=== PATIENT | female | born 1985 | race African-American/Black ===

== ENCOUNTER 2019-11-08 18:23 | Emergency (ER) | payer OTHER ==
[~2019-11-08] VITALS: Ht 170.2 cm; Wt 81.6 kg
[~2019-11-08 18:23] MED LIST: LEVSIN/SL0.125 MG PO; PEPCID40 MG PO; PHENERGAN25 MG PO
== END 2019-11-08 20:01 | disposition home or self-care (01) ==
LOC: ER 18:23
DX: E13.649 Other specified diabetes mellitus with hypoglycemia without coma (principal); Z03.818 Encounter for observation for suspected exposure to other biological agents ruled out; R53.1 Weakness; R42 Dizziness and giddiness